=== PATIENT | female | born 1990 | race Caucasian/White ===

== ENCOUNTER 2019-05-27 22:27 | Observation (INO) | payer OTHER ==
[~2019-05-27] VITALS: Ht 157.5 cm; Wt 70.8 kg
[2019-05-27 23:03] VITALS: BP 127/74
[2019-05-27] MEDS ORDERED: PNV11TAB PO (23:48)
[2019-05-28] MEDS ORDERED: PREN-217 PO (11:32)
== END 2019-05-27 23:31 | disposition home or self-care (01) ==
LOC: 4S 22:27
PROVIDERS: ADMIT Obstetrics & Gynecology; ATTEND Obstetrics & Gynecology
DX: O36.8130 Decreased fetal movements, third trimester, not applicable or unspecified (principal); Z3A.39 39 weeks gestation of pregnancy; Z98.891 History of uterine scar from previous surgery
CPT/HCPCS: 81002; G0378

== ENCOUNTER 2019-05-28 10:25 | Inpatient (IN) | payer OTHER ==
[~2019-05-28] VITALS: Ht 152.4 cm; Wt 69.9 kg
[~2019-05-28 10:25] MED LIST: PNV11TAB PO
[2019-05-28] MEDS ORDERED: RINGERS SOLUTION,LACTATED 1,000 ML IV SCH (11:28)
[2019-05-28] MEDS ORDERED: RINGERS SOLUTION,LACTATED 1,000 ML IV PRN (11:28)
[2019-05-28] MEDS ORDERED: METOCLOPRAMIDE HCL 5 MG/ML 2 ML VIAL IVP PRN (11:30)
[2019-05-28] MEDS ORDERED: CITRIC ACID/SODIUM CITRATE 30 ML SOLUTION UDCUP PO PRN (11:30)
[2019-05-28] MEDS ORDERED: PREN-217 PO (11:32)
[2019-05-28 11:36] VITALS: BP 113/72
[2019-05-28 11:58] LABS: BASOPHILS % (AUTO) 0.8 % (0.0-2.0); EOSINOPHILS % (AUTO) 0.8 % (1.0-6.0); HEMATOCRIT 39.4 % (36-46); HEMOGLOBIN 13.2 g/dL (12.0-16.0); LYMPHOCYTES # (AUTO) 1.5 K/uL (1.0-4.8); LYMPHOCYTES % (AUTO) 13.7 % (22.0-44.0); MEAN CORPUSCULAR HEMOGLOBIN 30.6 pg (26.0-34.0); MEAN CORPUSCULAR HGB CONC 33.6 G/dL (31.0-37.0); MEAN CORPUSCULAR VOLUME 91 fL (80-100); MONOCYTES # (AUTO) 0.7 K/uL (0.1-1.0); MONOCYTES % (AUTO) 6.5 % (2.0-9.0); NEUTROPHILS # (AUTO) 8.5 K/uL (1.8-7.7); NEUTROPHILS % (AUTO) 78.2 % (40.0-70.0); PLATELET COUNT (AUTO)-OB 181 K/uL (150-450); RED BLOOD CELL COUNT(AUTO) 4.32 MIL/uL (4.00-5.20); RED CELL DISTRIBUTION WIDTH 14.2 % (11.5-14.5)
[2019-05-28] MEDS ORDERED: MIDAZOLAM HCL 2 MG/2 ML VIAL ONE (12:25)
[2019-05-28] MEDS ORDERED: BUPIVACAINE HCL/DEX-WATER/PF 0.75% 2 ML AMP ONE (12:25)
[2019-05-28] MEDS ORDERED: DEXAMETHASONE SOD PHOS 4 MG/ML VIAL ONE (12:25)
[2019-05-28] MEDS ORDERED: ONDANSETRON HCL 4 MG/2 ML VIAL ONE (12:25)
[2019-05-28] MEDS ORDERED: MORPHINE SULFATE/PF 1 MG/ML 10 ML AMP ONE (12:25)
[2019-05-28] MEDS ORDERED: FentaNYL CITRATE-PF 100 MCG/2 ML VIAL ONE (12:25)
[2019-05-28] MEDS ORDERED: KETOROLAC TROMETHAMINE 30 MG/ML VIAL ONE (12:25)
[2019-05-28] MEDS ORDERED: OxyCODONE HCL/ACETAMINOPHEN 5-325 MG TABLET PO PRN ×3 (12:45→14:15)
[2019-05-28] MEDS ORDERED: NALOXONE HCL 0.4 MG/ML VIAL IVP PRN (12:45)
[2019-05-28] MEDS ORDERED: ONDANSETRON HCL 4 MG/2 ML VIAL IVP PRN (12:45)
[2019-05-28] MEDS ORDERED: GUM MASTIC/STORAX/MSAL/ALCOHOL LIQUID 0.67 ML VIAL TP ONE (13:31)
[2019-05-28] MEDS ORDERED: OXYTOCIN 20 UNITS/LACT RINGERS 1,000 ML IV SCH (14:05)
[2019-05-28] MEDS ORDERED: GLYCERIN/WITCH HAZEL LEAF 40 PADS JAR TP PRN (14:15)
[2019-05-28] MEDS: DiphenhydrAMINE HCL 50 MG/ML VIAL IVP PRN ×2 (14:55→21:30)
[2019-05-28] MEDS: KETOROLAC TROMETHAMINE 30 MG/ML VIAL IVP SCH (17:58)
[2019-05-28] MEDS ORDERED: OXYGEN THERAPY IH SCH ×3 (20:00)
[2019-05-29] MEDS: KETOROLAC TROMETHAMINE 30 MG/ML VIAL IVP SCH ×3 (00:38→12:04)
[2019-05-29] MEDS: DEXTROSE 5%-0.45% SODIUM CHL 1,000 ML IV SCH ×2 (00:56→11:16)
[2019-05-29] MEDS: DiphenhydrAMINE HCL 50 MG/ML VIAL IVP PRN (06:24)
[2019-05-29 06:45] LABS: BASOPHILS % (AUTO) 0.2 % (0.0-2.0); EOSINOPHILS % (AUTO) 0.1 % (1.0-6.0); HEMATOCRIT 35.5 % (36-46); HEMOGLOBIN 11.8 g/dL (12.0-16.0); LYMPHOCYTES # (AUTO) 2.1 K/uL (1.0-4.8); LYMPHOCYTES % (AUTO) 15.8 % (22.0-44.0); MEAN CORPUSCULAR HEMOGLOBIN 30.5 pg (26.0-34.0); MEAN CORPUSCULAR HGB CONC 33.2 G/dL (31.0-37.0); MEAN CORPUSCULAR VOLUME 92 fL (80-100); MONOCYTES # (AUTO) 1.3 K/uL (0.1-1.0); MONOCYTES % (AUTO) 9.6 % (2.0-9.0); NEUTROPHILS # (AUTO) 9.7 K/uL (1.8-7.7); NEUTROPHILS % (AUTO) 74.3 % (40.0-70.0); PLATELET COUNT (AUTO)-OB 176 K/uL (150-450); RED BLOOD CELL COUNT(AUTO) 3.87 MIL/uL (4.00-5.20); RED CELL DISTRIBUTION WIDTH 14.1 % (11.5-14.5)
[2019-05-29] MEDS: MAGNESIUM HYDROXIDE SUSPENSION 30 ML UDCUP PO SCH ×2 (09:04→21:05)
[2019-05-29] MEDS: IBUPROFEN 600 MG TABLET PO PRN (17:47)
[2019-05-30] MEDS: MAGNESIUM HYDROXIDE SUSPENSION 30 ML UDCUP PO SCH (09:29)
[2019-05-30] MEDS: IBUPROFEN 600 MG TABLET PO PRN (11:09)
[2019-05-30] MEDS ORDERED: IBUP-2071 PO (11:24)
[2019-05-30] MEDS ORDERED: FERR-89 PO (11:25)
[2019-05-30] MEDS ORDERED: DSS100 PO (11:26)
[2019-05-30] MEDS ORDERED: PERCT PO (11:29)
== END 2019-05-30 13:25 | disposition home or self-care (01) | DRG 788 ==
LOC: OBSVTOIN 10:25 → 4S 10:25
PROVIDERS: ADMIT Obstetrics & Gynecology; ATTEND Obstetrics & Gynecology
PROC: 10D00Z1 Extraction of Products of Conception, Low, Open Approach (ICD-10-PCS; principal; 2019-05-28)
DX: O34.211 Maternal care for low transverse scar from previous cesarean delivery (principal); O69.82X0 Labor and delivery complicated by other cord entanglement, without compression, not applicable or unspecified; Z3A.39 39 weeks gestation of pregnancy; Z37.0 Single live birth
CPT/HCPCS: 86850; 86900; 86901; 87081; J1100; J1200; J1885; J2250; J2405; J2765; J3010; J3490; J7120